=== PATIENT | female | born 1965 | race Caucasian/White ===

== ENCOUNTER 2016-04-27 22:19 | Emergency (ER) | payer OTHER ==
[2016-04-27] MEDS ORDERED: SYMBICORT 160-1 PUFF INH (22:45)
[2016-04-27] MEDS ORDERED: PREMARIN0.625 MG/T GT (22:46)
[2016-04-27] MEDS ORDERED: PROAIR HFA8.5 GM IH (22:46)
== END 2016-04-27 23:23 ==
LOC: EDMED 22:19
DX: G43.B0 Ophthalmoplegic migraine, not intractable (principal); J45.909 Unspecified asthma, uncomplicated; Z79.51 Long term (current) use of inhaled steroids